=== PATIENT | female | born 1960 | race Hispanic/Latino ===

== ENCOUNTER 2020-08-11 07:11 | Day surgery (SDC) | payer BC ==
[2020-08-04 11:21] LABS: BASOPHILS % (AUTO) 0.5 % (0.0-5.0); EOSINOPHILS % (AUTO) 4.1 % (0.0-8.0); HEMATOCRIT 38.7 % (36-48); LYMPHOCYTES % (AUTO) 19.2 % (21.0-51.0); MEAN CORPUSCULAR HEMOGLOBIN 32.5 pg (27.0-33.0); MEAN CORPUSCULAR HGB CONC 34.4 g/dL (32.0-36.0); MEAN CORPUSCULAR VOLUME 94.6 fL (79-99); MONOCYTES % (AUTO) 5.4 % (3.0-13.0); NEUTROPHILS % (AUTO) 70.5 % (40.0-77.0); PLATELET COUNT (AUTO) 207 K/uL (130-400); RED BLOOD CELL COUNT(AUTO) 4.09 MIL/uL (4.00-5.50); RED CELL DISTRIBUTION WIDTH 12.3 % (11.0-15.5); WHITE BLOOD COUNT (AUTO) 3.9 K/uL (4.8-10.8)
[2020-08-04 11:41] LABS: ALBUMIN 4.1 g/dL (3.5-5.0); BILIRUBIN,TOTAL 0.6 mg/dL (0.2-1.0); CREATININE 0.6 mg/dL (0.5-1.5); POTASSIUM 4.3 mmol/L (3.5-5.1); TOTAL PROTEIN, SERUM 7.7 g/dL (6.0-8.3)
[2020-08-04 11:48] LABS: INR 1.04 (0.85-1.15); PROTHROMBIN TIME 11.3 SEC (9.6-11.6)
[2020-08-04 11:49] LABS: PARTIAL THROMBOPLASTIN TIME 31.1 SEC (26.3-35.5)
[2020-08-10 12:42] VITALS: BP 136/70
[2020-08-11] VITALS (19 sets, daily range): BP systolic 106–129; BP diastolic 48–76
[~2020-08-11] VITALS: Ht 157.5 cm; Wt 60.3 kg
[~2020-08-11 07:11] MED LIST: ASCO100031 PO; CALC-1106 PO; FEXO180T94 PO; GARL1000 PO; INUL1TAB4 PO; LISI20TA24 PO; MVIT PO; PSYL174P2 PO; UBID100C45 PO
[2020-08-11] MEDS ORDERED: LACTATED RINGERS 1000ML 1,000 ML IV ONE (07:29)
[2020-08-11] MEDS ORDERED: CEFAZOLIN SODIUM 1 GM VIAL ONE (07:29)
[2020-08-11] MEDS ORDERED: INDOCYANINE GREEN 25 MG VIAL IJ ONE (07:46)
[2020-08-11] MEDS ORDERED: FENTANYL CITRATE PF 50 MCG/1 ML 2ML VIAL ONE (08:16)
[2020-08-11] MEDS ORDERED: ONDANSETRON HCL 4 MG/2 ML VIAL ONE (08:16)
[2020-08-11] MEDS ORDERED: DEXAMETHASONE SOD PHOSPHATE 10MG/ML 1ML VIAL ONE (08:16)
[2020-08-11] MEDS ORDERED: PROPOFOL 10 MG/ML 20ML VIAL IV ONE (08:16)
[2020-08-11] MEDS ORDERED: LIDOCAINE PF 2% 5ML ABBOJECT ONE (08:16)
[2020-08-11] MEDS ORDERED: NEOSTIGMINE 5MG/5ML SYR IV ONE (08:16)
[2020-08-11] MEDS ORDERED: SUCCINYLCHOLINE 200MG/10ML SYR ONE (08:16)
[2020-08-11] MEDS ORDERED: MIDAZOLAM HCL 1 MG/ML 2ML VIAL ONE (08:16)
[2020-08-11] MEDS ORDERED: GLYCOPYRROLATE 1 MG/5 ML SYRINGE ONE (08:16)
[2020-08-11] MEDS ORDERED: ROCURONIUM 10MG/1ML SYR 10 MG/ML ML ONE (08:16)
[2020-08-11] MEDS ORDERED: MEPERIDINE-PF 25 MG/ML SYG ONE ×2 (08:21→11:02)
[2020-08-11] MEDS ORDERED: BUPIVACAINE/PF 0.5% 30ML VIAL ONE (08:23)
[2020-08-11] MEDS ORDERED: PHENYLEPHRINE HCL 10 MG/ML 1ML VIAL IV ONE (09:10)
[2020-08-11] MEDS ORDERED: EPHEDRINE SULFATE 50 MG/ML AMPULE ONE (09:10)
== END 2020-08-11 12:55 | disposition home or self-care (01) ==
LOC: DAH 07:11
PROVIDERS: ATTEND Student in an Organized Health Care Education/Training Program
DX: K80.10 Calculus of gallbladder with chronic cholecystitis without obstruction (principal); Z20.822 Contact with and (suspected) exposure to COVID-19; I10 Essential (primary) hypertension; Z90.710 Acquired absence of both cervix and uterus; Z85.89 Personal history of malignant neoplasm of other organs and systems; Z92.3 Personal history of irradiation; Z79.899 Other long term (current) drug therapy; Z79.01 Long term (current) use of anticoagulants
CPT/HCPCS: 47562; S2900; 36415; 80053; 85025; 85610; 85730; C9803; J0330; J0690; J1100; J2001; J2175; J2250; J2370; J2405; J2704; J2710; J3010; J3490; J7030; J7120; U0003